=== PATIENT | female | born 1950 | race Caucasian/White ===

== ENCOUNTER 2019-12-28 09:57 | Outpatient (CLI) | payer MEDICARE, BC ==
--- NOTE | 2019-12-28 13:18 | CT ---
CT ABDOMEN AND PELVIS WITH ORAL AND IV CONTRAST: Date: 12/28/2019 HISTORY: Right upper quadrant pain and GE reflux. FINDINGS: The lung bases are unremarkable. The patient is post cholecystectomy and hysterectomy. There is minim al dilatation of the hepatic biliary ducts. No hepatic mass is seen. The spleen, pancreas, adrenal gl ands, and left kidney appear normal. There is a 1.0 cm low density lesion in the anterior right renal cortex, likely cyst. No free air, free fluid, or lymphadenopathy seen in the abdomen or pelvis. The small bowel loops are not abnormally dilated. A normal appearing appendix is present. There is colonic diverticulosis witho ut diverticulitis. There are vascular calcifications without evidence of aneurysmal dilatation of the abdominal aorta. T here are degenerative changes in the spine and hip joints. There is levoscoliosis of the lumbar spine . IMPRESSION: Colonic diverticulosis. POS: [facility]
[2019-12-28] MEDS ORDERED: Iopamidol-370 76% 500 ML 1 ML ONE (15:27)
== END 2019-12-28 09:58 | disposition home or self-care (01) ==
LOC: BICCT 09:57
PROVIDERS: ATTEND Physician Assistant
DX: R10.11 Right upper quadrant pain (principal); K21.9 Gastro-esophageal reflux disease without esophagitis; K57.30 Diverticulosis of large intestine without perforation or abscess without bleeding
CPT/HCPCS: 74177; Q9967

== ENCOUNTER 2020-12-25 13:22 | Outpatient (CLI) | payer MEDICARE, BC | END 2020-12-25 13:23 | disposition home or self-care (01) | LOC: ULT 13:22 | PROVIDERS: ATTEND Family Medicine | DX: I50.9 Heart failure, unspecified (principal); I08.1 Rheumatic disorders of both mitral and tricuspid valves | CPT/HCPCS: 93306 ==

== ENCOUNTER 2020-12-30 10:04 | Outpatient (CLI) | payer MEDICARE, BC | END 2020-12-30 10:05 | disposition home or self-care (01) | LOC: BICMAMMO 10:04 | PROVIDERS: ATTEND Family Medicine | DX: Z12.31 Encounter for screening mammogram for malignant neoplasm of breast (principal) | CPT/HCPCS: 77063; 77067 ==

== ENCOUNTER 2024-09-04 13:31 | Outpatient (CLI) | payer MEDICARE, BC | END 2024-09-04 13:32 | disposition home or self-care (01) | LOC: BICMAMMO 13:31 | PROVIDERS: ATTEND Family Medicine | DX: Z12.31 Encounter for screening mammogram for malignant neoplasm of breast (principal); Z80.3 Family history of malignant neoplasm of breast | CPT/HCPCS: 77063; 77067 ==